=== PATIENT | male | born 1975 | race Caucasian/White ===

== ENCOUNTER 2023-04-14 16:32 | Emergency (ER) | payer BC ==
[~2023-04-14] VITALS: Ht 193 cm; Wt 108.9 kg
[2023-04-14 16:41] VITALS: BP_SYST 143; PULSE 110; RESP 20; TEMP 98.3; O2SAT 95
[2023-04-14 17:28] LABS: COVID19 ANTIGEN SOFIA FIA NEGATIVE (NEGATIVE)
[2023-04-14] MEDS ORDERED: PIPERACILLIN/TAZO 3.375 GM in NS 50 ML IV ONE (17:30)
[2023-04-14] MEDS ORDERED: IBUPROFEN 600 MG TABLET PO ONE (17:45)
[2023-04-14 17:58] LABS: INFLUENZA TYPE A Negative (NEGATIVE); INFLUENZA TYPE B NEGATIVE (NEGATIVE)
[2023-04-14] MEDS ORDERED: PIPERACILLIN/TAZOBACTAM 3.375 GM/VIAL (ZOSYN) IV ONE (18:12)
[2023-04-14 18:32] LABS: HEMATOCRIT 41.5 % (36-54); MEAN CORPUSCULAR HEMOGLOBIN 29 pg (27-31); MEAN CORPUSCULAR HGB CONC 34 % (32-36); MEAN CORPUSCULAR VOLUME 86 fL (79.0-98.0); PLATELET COUNT (AUTO) 183 K/uL (130-430); RED BLOOD CELL COUNT(AUTO) 4.84 MIL/uL (4.2-6.2); WHITE BLOOD COUNT (AUTO) 16.9 K/uL (4.8-10.8)
[2023-04-14 19:02] LABS: ALBUMIN 3.9 g/dL (3.4-4.8); CALCIUM 9.1 mg/dL (8.4-11.0); CREATININE 1.11 mg/dL (0.55-1.30); POTASSIUM 3.2 mmol/L (3.5-5.1); TOTAL BILIRUBIN 0.8 mg/dL (0.0-1.0); TOTAL PROTEIN, SERUM 7.4 g/dL (6.4-8.3)
[2023-04-14] MEDS ORDERED: POTASSIUM CHLORIDE 20 MEQ/PKT PACKET PO ONE (19:45)
[2023-04-14] MEDS ORDERED: AUG875 PO (19:50)
[2023-04-14] MEDS ORDERED: ALBMDI INH (19:51)
[2023-04-14] MEDS ORDERED: CLAR-61 PO (19:52)
[2023-04-14 20:07] VITALS: BP_SYST 122; PULSE 88; RESP 18; TEMP 98.3; O2SAT 95
[2023-04-14 20:08] LABS: BAND % (MANUAL) 19 % (0-6); BASOPHILS % (MANUAL) 0 % (0-2); EOSINOPHILS % (MANUAL) 1 % (0-7); LYMPHOCYTES % (MANUAL) 5 % (20-46); MONOCYTES % (MANUAL) 10 % (0-11); PLATELET ESTIMATE ADEQUATE (ADEQUATE)
== END 2023-04-14 20:07 | disposition home or self-care (01) ==
LOC: SED 16:32
DX: J18.9 Pneumonia, unspecified organism (principal); I10 Essential (primary) hypertension; Z79.899 Other long term (current) drug therapy; Z20.822 Contact with and (suspected) exposure to COVID-19
CPT/HCPCS: 99284; 96365; 71045; 87426; 85027; 80053; 85007; 87040; 36415; 83605; 87804 ×2; J2543